=== PATIENT | male | born 1965 | race African-American/Black ===

== ENCOUNTER 2018-03-24 12:07 | Inpatient (IN) | payer SELFPAY ==
[~2018-03-24] VITALS: Ht 172.7 cm; Wt 93.0 kg
[2018-03-24] VITALS (20 sets, daily range): BP systolic 137–164; BP diastolic 61–118
[2018-03-24] MEDS ORDERED: SODIUM CHLORIDE 0.9% 2,000 ML IV ONE (13:10)
[2018-03-24] MEDS ORDERED: ONDANSETRON HCL 4MG/2ML VIAL IV ONE (13:15)
[2018-03-24 13:23] LABS: PROTHROMBIN TIME 10.4 sec (9.4-11.6)
[2018-03-24 13:24] LABS: CHLORIDE 97 mEq/L (98-107)
[2018-03-24 13:25] LABS: BASOPHILS % 0.5 % (0.0-2.0); EOSINOPHILS % 0.2 % (0.0-5.0); HEMATOCRIT. 49.1 % (42.0-52.0); HEMOGLOBIN. 15.9 g/dL (14.0-18.0); LYMPHOCYTES % 27.9 % (20.0-50.0); MEAN CORPUSCULAR HEMOGLOBIN 29.6 pg (28.0-32.0); MEAN PLATELET VOLUME 10.1 fl (7.4-10.4); MONOCYTES % 6.9 % (2.0-8.0); NEUTROPHILS % 64.5 % (40.0-76.0); PLATELET 288 x1000/uL (130-400); RED BLOOD CELL COUNT 5.39 mill/uL (4.7-6.1)
[2018-03-24 14:00] LABS: CLARITY URINE CLEAR (CLEAR); COLOR URINE YELLOW (YELLOW); KETONES URINE 3+ (NEGATIVE); LEUKOCYTE ESTERASE URINE NEGATIVE (NEGATIVE); NITRITE URINE NEGATIVE (NEGATIVE); OCCULT BLOOD URINE NEGATIVE (NEGATIVE); PROTEIN URINE NEGATIVE (NEGATIVE); SPECIFIC GRAVITY URINE 1.034 (1.005-1.030); UROBILINOGEN URINE 0.2 E.U./dL (0.2-1.0)
[2018-03-24 14:04] LABS: AMYLASE 49 IU/L (25-115)
[2018-03-24 14:07] LABS: BETA HYDROXYBUTYRATE 6.6 mMol/L (0.0-0.3)
[2018-03-24] MEDS ORDERED: INSULIN REGULAR (DRIP) 100 UNITS in SODIUM CHLORIDE 0.9% 99 ML IV ONE ×4 (15:30)
[2018-03-24] MEDS ORDERED: DEXTROSE 50% WATER 50ML SYRINGE IV PRN ×2 (16:15)
[2018-03-24] MEDS ORDERED: DIPHENHYDRAMINE 50MG/ML VIAL IV PRN (16:15)
[2018-03-24] MEDS ORDERED: ACETAMINOPHEN 650MG/20.3ML UDC GT PRN (16:15)
[2018-03-24] MEDS ORDERED: HYDROCODONE/APAP 7.5/325MG 1 TAB TABLET PO PRN (16:15)
[2018-03-24] MEDS ORDERED: IPRATROPIUM/ALBUTEROL 0.5-3(2.5)MG/3ML NEB INH PRN (16:15)
[2018-03-24] MEDS ORDERED: NA PHOS,M-B/NA PHOS,DI-BA ENEMA 118ML PR PRN (16:15)
[2018-03-24] MEDS ORDERED: GUAIFENESIN 200MG/10ML SUGAR FREE UDC PO PRN (16:15)
[2018-03-24] MEDS ORDERED: ONDANSETRON HCL 4MG/2ML VIAL IV PRN (16:15)
[2018-03-24] MEDS ORDERED: DOCUSATE SODIUM 100MG CAPSULE PO PRN (16:15)
[2018-03-24] MEDS ORDERED: MAGNESIUM/ALUMINUM HYDROXIDE/SIMETHICONE 30ML UDC PO PRN (16:15)
[2018-03-24] MEDS ORDERED: ACETAMINOPHEN 650MG SUPP PR PRN (16:15)
[2018-03-24] MEDS ORDERED: ACETAMINOPHEN 325MG TABLET PO PRN (16:15)
[2018-03-24] MEDS: BLOOD SUGAR DIAGNOSTIC STRIP TEST SCH ×5 (19:00→23:12)
[2018-03-24] MEDS ORDERED: INSULIN REGULAR (DRIP) 100 UNITS in SODIUM CHLORIDE 0.9% 100 ML IV SCH (20:00)
[2018-03-24] MEDS: SODIUM CHLORIDE 0.9% INJ 3ML FLUSH IVF SCH (21:06)
[2018-03-24] MEDS: ENOXAPARIN 30MG/0.3ML SYR SUBCUT SCH (21:06)
[2018-03-24] MEDS: SODIUM CHLORIDE 0.45% 1,000 ML IV SCH (21:07)
[2018-03-24] MEDS: CLONIDINE 0.1MG TABLET PO PRN (23:13)
[2018-03-25] VITALS (29 sets, daily range): BP systolic 114–161; BP diastolic 62–102
[2018-03-25] MEDS: BLOOD SUGAR DIAGNOSTIC STRIP TEST SCH ×13 (01:00→21:00)
[2018-03-25] MEDS: SODIUM CHLORIDE 0.9% INJ 3ML FLUSH IVF SCH ×3 (05:17→21:20)
[2018-03-25] MEDS: SODIUM CHLORIDE 0.45% 1,000 ML IV SCH ×3 (05:17→23:59)
[2018-03-25 05:49] LABS: EOSINOPHILS % 1.1 % (0.0-5.0); HEMATOCRIT. 45.6 % (42.0-52.0); HEMOGLOBIN. 15.3 g/dL (14.0-18.0); LYMPHOCYTES % 37.5 % (20.0-50.0); MEAN CORPUSCULAR HEMOGLOBIN 29.7 pg (28.0-32.0); MEAN CORPUSCULAR VOLUME 88.3 fL (80.0-94.0); MEAN PLATELET VOLUME 9.6 fl (7.4-10.4); MONOCYTES % 12.4 % (2.0-8.0); PLATELET 235 x1000/uL (130-400); RED BLOOD CELL COUNT 5.16 mill/uL (4.7-6.1); RED CELL DISTRIBUTION WIDTH 13.9 % (11.6-14.6)
[2018-03-25 06:26] LABS: CHLORIDE 112 mEq/L (98-107)
[2018-03-25 06:33] LABS: LDL CHOLESTEROL 86 mg/dL (5-100)
[2018-03-25 06:34] LABS: HDL CHOLESTEROL 47 mg/dL (40-59)
[2018-03-25] MEDS: CLONIDINE 0.1MG TABLET PO PRN (06:38)
[2018-03-25] MEDS: ENOXAPARIN 30MG/0.3ML SYR SUBCUT SCH ×2 (08:09→21:20)
[2018-03-25] MEDS ORDERED: DEXTROSE 50% WATER 50ML SYRINGE IV PRN (09:45)
[2018-03-25] MEDS: INSULIN LISPRO 100 UNITS/ML SUBCUT SCH ×3 (11:39→21:23)
[2018-03-25 12:25] LABS: *AMPHETAMINES SCREEN URINE NEGATIVE (NEGATIVE); *BARBITURATES SCREEN URINE NEGATIVE (NEGATIVE); *BENZODIAZEPINES SCREEN URINE NEGATIVE (NEGATIVE); *COCAINE SCREEN URINE NEGATIVE (NEGATIVE); OPIATES URINE SCREEN NEGATIVE (NEGATIVE); PHENCYCLIDINE URINE SCREEN NEGATIVE (NEGATIVE)
[2018-03-25 12:26] LABS: METHADONE URINE SCREEN NEGATIVE (NEGATIVE)
[2018-03-25 12:34] LABS: CLARITY URINE CLOUDY (CLEAR); COLOR URINE YELLOW (YELLOW); KETONES URINE 2+ (NEGATIVE); LEUKOCYTE ESTERASE URINE NEGATIVE (NEGATIVE); NITRITE URINE NEGATIVE (NEGATIVE); OCCULT BLOOD URINE NEGATIVE (NEGATIVE); PROTEIN URINE NEGATIVE (NEGATIVE); UROBILINOGEN URINE 0.2 E.U./dL (0.2-1.0)
[2018-03-25 12:39] LABS: CANNABINOID URINE SCREEN NEGATIVE (NEGATIVE)
[2018-03-25 13:10] LABS: *COCAINE SCREEN URINE NEGATIVE (NEGATIVE); METHADONE URINE SCREEN NEGATIVE (NEGATIVE); OPIATES URINE SCREEN NEGATIVE (NEGATIVE)
[2018-03-25 13:11] LABS: *AMPHETAMINES SCREEN URINE NEGATIVE (NEGATIVE); *BARBITURATES SCREEN URINE NEGATIVE (NEGATIVE); *BENZODIAZEPINES SCREEN URINE NEGATIVE (NEGATIVE); CANNABINOID URINE SCREEN NEGATIVE (NEGATIVE); PHENCYCLIDINE URINE SCREEN NEGATIVE (NEGATIVE)
[2018-03-25] MEDS: METFORMIN HCL 500MG TABLET PO SCH ×2 (17:38→17:45)
[2018-03-26] VITALS: BP 174/105
[2018-03-26] MEDS: CLONIDINE 0.1MG TABLET PO PRN ×2 (00:24→18:37)
[2018-03-26 04:00] VITALS: BP 141/95
[2018-03-26] MEDS: SODIUM CHLORIDE 0.9% INJ 3ML FLUSH IVF SCH ×3 (06:15→22:00)
[2018-03-26] MEDS: INSULIN LISPRO 100 UNITS/ML SUBCUT SCH ×4 (06:16→20:55)
[2018-03-26] MEDS: BLOOD SUGAR DIAGNOSTIC STRIP TEST SCH ×4 (06:17→20:49)
[2018-03-26 08:00] VITALS: BP 147/93
[2018-03-26] MEDS: METFORMIN HCL 500MG TABLET PO SCH ×2 (09:08→18:37)
[2018-03-26] MEDS: ENOXAPARIN 30MG/0.3ML SYR SUBCUT SCH ×2 (09:10→20:45)
[2018-03-26] MEDS: SODIUM CHLORIDE 0.45% 1,000 ML IV SCH (11:58)
[2018-03-26 12:00] VITALS: BP 159/90
[2018-03-26] MEDS ORDERED: METF500T PO (12:35)
[2018-03-26] MEDS ORDERED: GLYB2.5T4 PO (12:35)
[2018-03-26] MEDS: GLYBURIDE 2.5MG TABLET PO SCH ×2 (14:07→17:00)
[2018-03-26] MEDS ORDERED: AMLODIPINE 5MG TABLET PO ONE (19:15)
[2018-03-26] MEDS ORDERED: AMLO10TA4 MT (19:17)
[2018-03-26] MEDS ORDERED: AMLO10TA4 PO (19:17)
[2018-03-26] MEDS ORDERED: AMLODIPINE 5MG TABLET PO NR (19:30)
[2018-03-26] MEDS ORDERED: AMLODIPINE 10MG TABLET PO SCH (19:45)
[2018-03-26 20:00] VITALS: BP 142/93
[2018-03-27] VITALS: BP 137/98
[2018-03-27] MEDS: CLONIDINE 0.1MG TABLET PO PRN ×2 (00:32→09:21)
[2018-03-27 04:00] VITALS: BP 126/85
[2018-03-27] MEDS: SODIUM CHLORIDE 0.9% INJ 3ML FLUSH IVF SCH ×2 (06:09→06:10)
[2018-03-27] MEDS: BLOOD SUGAR DIAGNOSTIC STRIP TEST SCH (06:15)
[2018-03-27] MEDS: INSULIN LISPRO 100 UNITS/ML SUBCUT SCH (06:25)
[2018-03-27 08:00] VITALS: BP 163/101
[2018-03-27] MEDS: GLYBURIDE 2.5MG TABLET PO SCH (09:13)
[2018-03-27] MEDS: METFORMIN HCL 500MG TABLET PO SCH (09:13)
[2018-03-27] MEDS: ENOXAPARIN 30MG/0.3ML SYR SUBCUT SCH (09:13)
[2018-03-27] MEDS ORDERED: AMLODIPINE 10MG TABLET PO SCH (11:00)
[2018-03-27 11:49] VITALS: BP 155/100
== END 2018-03-27 11:54 | disposition home or self-care (01) | DRG 420 ==
LOC: ER 12:57 → MICUSO 15:30 → ENRESERV 18:14 → 8WST 03-25 13:37
PROVIDERS: ADMIT Family Medicine; ATTEND Family Medicine
DX: E11.10 Type 2 diabetes mellitus with ketoacidosis without coma (principal); E11.65 Type 2 diabetes mellitus with hyperglycemia; E86.0 Dehydration; R80.9 Proteinuria, unspecified; Z87.891 Personal history of nicotine dependence; Z88.0 Allergy status to penicillin
CPT/HCPCS: 36415; 80053; 80061; 80305; 81003; 82010; 82150; 82962; 83036; 83690; 84484; 85025; 85610; 93005; J1650; J1815; J2405; J7030; J7050